=== PATIENT | male | born 1990 | race Caucasian/White ===

== ENCOUNTER 2017-02-16 12:30 | Emergency (ER) | payer SELFPAY ==
[~2017-02-16] VITALS: Ht 170.2 cm; Wt 70.0 kg
[2017-02-16] MEDS ORDERED: KETOROLAC 30MG/ML VIAL IV STA (12:53)
[2017-02-16] MEDS ORDERED: SODIUM CHLORIDE 0.9% 1,000 ML IV ONE (12:53)
[2017-02-16 13:24] LABS: BASOPHILS % 0.3 % (0.0-2.0); EOSINOPHILS % 0.2 % (0.0-5.0); HEMATOCRIT. 42.7 % (42.0-52.0); HEMOGLOBIN. 14.3 g/dL (14.0-18.0); LYMPHOCYTES % 7.4 % (20.0-50.0); MEAN CORPUSCULAR HEMOGLOBIN 28.8 pg (28.0-32.0); MEAN CORPUSCULAR VOLUME 85.7 fL (80.0-94.0); MEAN PLATELET VOLUME 8.7 fl (7.4-10.4); MONOCYTES % 5.3 % (2.0-8.0); NEUTROPHILS % 86.8 % (40.0-76.0); PLATELET 206 x1000/uL (130-400); RED BLOOD CELL COUNT 4.98 mill/uL (4.7-6.1); RED CELL DISTRIBUTION WIDTH 13.7 % (11.6-14.6)
[2017-02-16 13:32] LABS: PROTHROMBIN TIME 10.7 sec
[2017-02-16 13:40] LABS: CARBON DIOXIDE 23 mEq/L (21-32); CHLORIDE 104 mEq/L (98-107)
[2017-02-16 14:40] VITALS: BP 119/53
== END 2017-02-16 15:29 | disposition home or self-care (01) ==
LOC: ER 12:30
DX: R07.89 Other chest pain (principal)
CPT/HCPCS: 36415; 71010; 80053; 85025; 85610; 93005; 96361; 96374; 99285; J1885; J7030; Z7610